=== PATIENT | male | born 2000 | race Caucasian/White ===

== ENCOUNTER 2020-07-11 10:46 | Emergency (ER) | payer OTHER ==
[~2020-07-11] VITALS: Ht 190.5 cm; Wt 129.3 kg
== END 2020-07-11 11:49 | disposition home or self-care (01) ==
LOC: ER 10:46
DX: S62.626A Displaced fracture of middle phalanx of right little finger, initial encounter for closed fracture (principal); W23.0XXA Caught, crushed, jammed, or pinched between moving objects, initial encounter; Y93.68 Activity, volleyball (beach) (court)
CPT/HCPCS: 26770; 73140; 99283-25